=== PATIENT | female | born 2000 | race African-American/Black ===

== ENCOUNTER 2018-06-19 08:54 | Emergency (ER) | payer OTHER, SELFPAY ==
[2018-06-19 11:12] LABS: Bilirubin Negative (Negative); Blood, Urine Negative (Negative); Glucose, Urine (Dipstick) Negative (Negative); Leukocyte Negative (Negative); Nitrite Negative (Negative); Protein, Urine (Dipstick) Negative (Neg-Trace); Specific Gravity, Urine 1.015 (1.005-1.030); Urobilinogen 0.2 mg/dL (0.2-1.0); pH, Urine 6.5 (5.0-9.0)
[2018-06-19 11:13] LABS: Clarity CLEAR (Clear); Pregnancy Test - Urine (BHCG) Negative (Negative)
[2018-06-19 11:14] LABS: Pregu Control Background? CLEAR/WHITE (CLR/WHITE); Pregu Control Bar Appear? YES (CONTROL BAR); Specific Gravity 1.015 (1.002-1.036)
[2018-06-21 03:07] LABS: Chlamydia by PCR Not Detected (NotDetected); GC by PCR Not Detected (NotDetected)
== END 2018-06-19 11:57 | disposition home or self-care (01) ==
LOC: ERS 08:54
DX: K59.00 Constipation, unspecified (principal); B37.3 Candidiasis of vulva and vagina
CPT/HCPCS: 81003; 81025; 87480; 87491; 87510; 87591; 87660; 99283